=== PATIENT | male | born 1995 | race Two or more races ===

== ENCOUNTER 2018-04-10 09:42 | Emergency (ER) | payer MEDICAID, OTHER ==
[~2018-04-10] VITALS: Ht 183.5 cm; Wt 109.1 kg
[2018-04-10 10:01] VITALS: BP 129/94
[2018-04-10] MEDS ORDERED: NEOM10DR45 OT (13:12)
[2018-04-10] MEDS ORDERED: SULF5DRO RIGHTEYE (13:12)
[2018-04-10] MEDS ORDERED: mag hydrox/Alum hydrox/simeth 30ml oral suspension PO ONE (13:20)
[2018-04-10] MEDS ORDERED: LIDOcaine Viscous 15ml cup PO ONE (13:20)
== END 2018-04-10 13:45 | disposition home or self-care (01) ==
LOC: ER 09:43
DX: H10.9 Unspecified conjunctivitis (principal); H60.91 Unspecified otitis externa, right ear; J02.9 Acute pharyngitis, unspecified; Z88.8 Allergy status to other drugs, medicaments and biological substances; Z79.899 Other long term (current) drug therapy
CPT/HCPCS: 99283

== ENCOUNTER 2021-12-07 10:39 | Emergency (ER) | payer MEDICAID ==
[~2021-12-07] VITALS: Ht 182.9 cm; Wt 108.0 kg
[~2021-12-07 10:39] MED LIST: SULF5DRO RIGHTEYE
[2021-12-07 10:52] VITALS: BP 128/71
[2021-12-07] MEDS ORDERED: PROP10TA10 PO (11:30)
[2021-12-07] MEDS ORDERED: BUPR100T13 PO (11:30)
== END 2021-12-07 11:48 | disposition home or self-care (01) ==
LOC: ER 10:40
DX: F32.A Depression, unspecified (principal); F22 Delusional disorders; Z72.89 Other problems related to lifestyle; Z88.8 Allergy status to other drugs, medicaments and biological substances; Z79.899 Other long term (current) drug therapy
CPT/HCPCS: 99283

== ENCOUNTER 2022-03-17 15:19 | Emergency (ER) | payer MEDICAID ==
[~2022-03-17] VITALS: Ht 182.9 cm; Wt 106.8 kg
[~2022-03-17 15:19] MED LIST changes: +BUPR100T13 PO
[2022-03-17 15:28] VITALS: BP 165/81
== END 2022-03-17 16:36 | disposition home or self-care (01) ==
LOC: ER 15:20
DX: R23.8 Other skin changes (principal); F32.A Depression, unspecified; Z72.89 Other problems related to lifestyle; Z88.8 Allergy status to other drugs, medicaments and biological substances; Z79.899 Other long term (current) drug therapy
CPT/HCPCS: 99281

== ENCOUNTER 2022-07-04 03:00 | Emergency (ER) | payer MEDICAID | END 2022-07-04 03:56 | disposition left against medical advice (07) | LOC: ER 03:01 → MERGE 03:01 → ER 03:56 | DX: Z00.8 Encounter for other general examination (principal); Z53.21 Procedure and treatment not carried out due to patient leaving prior to being seen by health care provider ==

== ENCOUNTER 2023-10-19 15:44 | Emergency (ER) | payer MEDICAID ==
[~2023-10-19] VITALS: Ht 182.9 cm; Wt 108.6 kg
[2023-10-19] MEDS ORDERED: AMOX-580 PO (16:19)
[2023-10-19 16:26] VITALS: BP 134/74; PULSE 78; RESP 18; TEMP 98.2; O2SAT 97
== END 2023-10-19 17:42 | disposition home or self-care (01) ==
LOC: ER 15:45
DX: J32.9 Chronic sinusitis, unspecified (principal); F12.90 Cannabis use, unspecified, uncomplicated; Z72.89 Other problems related to lifestyle; Z88.8 Allergy status to other drugs, medicaments and biological substances; Z79.899 Other long term (current) drug therapy
CPT/HCPCS: 99283

== ENCOUNTER 2023-11-24 19:57 | Emergency (ER) | payer MEDICAID ==
[~2023-11-24] VITALS: Ht 182.9 cm; Wt 106.8 kg
[2023-11-24 20:08] VITALS: BP 135/69; PULSE 71; RESP 16; TEMP 98.9; O2SAT 96
== END 2023-11-25 05:06 | disposition left against medical advice (07) ==
LOC: ER 19:58
DX: R20.2 Paresthesia of skin (principal); Z53.21 Procedure and treatment not carried out due to patient leaving prior to being seen by health care provider
CPT/HCPCS: 99281

== ENCOUNTER 2023-12-23 02:27 | Emergency (ER) | payer MEDICAID ==
[~2023-12-23] VITALS: Ht 182.9 cm; Wt 106.8 kg
[~2023-12-23 02:27] MED LIST changes: +AMOX-117 PO; +FLUT16SP2 BOTHNARES; +PSEU120T56 PO
[2023-12-23] MEDS ORDERED: CLIN-214 PO (05:41)
[2023-12-23] MEDS: predniSONE 20 mg tablet PO ONE (05:53)
[2023-12-23 06:02] VITALS: BP 122/71; PULSE 84; RESP 16; TEMP 98.7; O2SAT 100
== END 2023-12-23 06:03 | disposition home or self-care (01) ==
LOC: ER 02:27
DX: T78.49XA Other allergy, initial encounter (principal); T36.95XA Adverse effect of unspecified systemic antibiotic, initial encounter; F31.9 Bipolar disorder, unspecified; F12.90 Cannabis use, unspecified, uncomplicated; Z88.8 Allergy status to other drugs, medicaments and biological substances; Z88.1 Allergy status to other antibiotic agents; Z79.2 Long term (current) use of antibiotics; Z79.899 Other long term (current) drug therapy; X58.XXXA Exposure to other specified factors, initial encounter; Y92.89 Other specified places as the place of occurrence of the external cause
CPT/HCPCS: 99283; J7512

== ENCOUNTER 2024-03-07 12:40 | Emergency (ER) | payer MEDICAID ==
[~2024-03-07] VITALS: Ht 182.9 cm; Wt 103.8 kg
[~2024-03-07 12:40] MED LIST changes: -AMOX-117 PO; +CLIN-214 PO
[2024-03-07 13:27] VITALS: BP 139/71; PULSE 64; RESP 16; TEMP 97; O2SAT 97
[2024-03-07] MEDS ORDERED: HYDR-3686 PO (14:59)
[2024-03-07] MEDS: hydrOXYzine 25 MG tablet PO ONE (15:18)
== END 2024-03-07 15:35 | disposition home or self-care (01) ==
LOC: ER 12:40
DX: F32.A Depression, unspecified (principal); F41.9 Anxiety disorder, unspecified; Z88.8 Allergy status to other drugs, medicaments and biological substances
CPT/HCPCS: 99283; Q0177

== ENCOUNTER 2024-03-22 12:10 | Emergency (ER) | payer MEDICAID ==
[~2024-03-22] VITALS: Ht 182.9 cm; Wt 106.8 kg
[~2024-03-22 12:10] MED LIST changes: +HYDR-3686 PO
[2024-03-22 12:45] VITALS: TEMP 100
[2024-03-22] MEDS: ibuprofen tablet 400 MG TABLET PO ONE (13:49)
[2024-03-22] MEDS ORDERED: NIRM1TAB9 PO (15:12)
[2024-03-22 16:19] VITALS: BP 115/71; PULSE 86; RESP 16; O2SAT 98
== END 2024-03-22 16:21 | disposition home or self-care (01) ==
LOC: ER 12:10
DX: U07.1 COVID-19 (principal); F12.90 Cannabis use, unspecified, uncomplicated; Z88.8 Allergy status to other drugs, medicaments and biological substances; Z88.1 Allergy status to other antibiotic agents; Z79.899 Other long term (current) drug therapy
CPT/HCPCS: 36415; 71045; 87502; 87503; 87811; 99284

== ENCOUNTER 2024-05-16 23:14 | Emergency (ER) | payer MEDICAID ==
[~2024-05-16] VITALS: Ht 182.9 cm; Wt 104.5 kg
[~2024-05-16 23:14] MED LIST changes: -HYDR-3686 PO; +NIRM1TAB9 PO
[2024-05-16 23:27] VITALS: BP 124/79; PULSE 55; RESP 14; TEMP 98.1; O2SAT 96
== END 2024-05-17 00:28 | disposition left against medical advice (07) ==
LOC: ER 23:15
DX: F41.9 Anxiety disorder, unspecified (principal); R51.9 Headache, unspecified; Z53.21 Procedure and treatment not carried out due to patient leaving prior to being seen by health care provider

== ENCOUNTER 2025-05-18 12:14 | Emergency (ER) | payer MEDICAID ==
[~2025-05-18] VITALS: Ht 182.9 cm; Wt 114.6 kg
[2025-05-18 12:15] VITALS: TEMP 97.8
--- NOTE | 2025-05-18 13:06 | Physician Documentation ---
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 He states he feels very fatigued initially he had a fever but states he believes his fever broke. He has been taking Tylenol at home as well as another [id number] medication for flu symptoms. He reports sinus congestion and body aches and fatigue. Denies sore throat, cough, shortness of breath, nausea, vomiting, abdominal pain, rashes. Medication Reconciliation Allergies: Coded Allergies: diphenhydramine (Verified Allergy, Intermediate, THROAT SWELLS, 03/22/24) amoxicillin (Verified Allergy, Mild, RASH, 03/22/24) clavulanic acid (Verified Allergy, Mild, RASH, 03/22/24) Scheduled Bupropion Hcl (Wellbutrin), 100 MG PO TID Clindamycin HCl (Clindamycin HCl CAPSULE), 1 CAP PO TID Fluticasone Propionate (Flonase), 2 SPRAYS BOTHNARES DAILY Nirmatrelvir/Ritonavir (Paxlovid 300-100 mg Dose Pack), 1 TAB PO BID Pseudoephedrine HCl (Sudafed 12 Hour), 1 TAB PO Q12H Sulfacetamide Sodium (Bleph-10), 2 DROP RIGHTEYE Q8H Past Medical History Past Medical History: *ENT*, Bipolar, Depression Past Surgical History: no surgical history Alcohol Use: Occasionally Drug Use: marijuana Lives In: Home Review of Systems All Other Systems at this time: Reviewed and Negative Physical Exam Vital Signs: Temperature: 97.8, Source: Oral, Heart Rate: 51, Respiratory Rate: 16, BP: 172/61, Pulse Oximetry: 97, Weight: 114.600 Oxygen Flow Rate: 0 Physical Exam GENERAL APPEARANCE: ALERT, WD/WN. NAD. HEENT: NCAT, PERRL, EOMI. NECK: SUPPLE, TRACHEA MIDLINE. CARDIOVASCULAR: RRR. NO M/R/G. LUNGS: CTAB. BREATHING UNLABORED EXTREMITIES: NORMAL INSPECTION. NO EDEMA. SKIN: WARM/DRY, NORMAL COLOR NEUROLOGICAL: ALERT AND ORIENTED X4, NORMAL GAIT. PSYCHIATRIC: AFFECT CONGRUENT WITH MOOD. Progress Results/Orders Results/Orders Vital Signs 05/18/25 12:15 Temp 97.8 Pulse 51 Resp 16 B/P (MAP) 172/61 Pulse Ox 97 O2 Flow Rate 0 Medical Decision Making Additional Comment SINUSITIS, BRONCHITIS, PNEUMONIA, STREP THROAT, EAR INFECTION, COVID, INFLUENZA, ALLERGIC RHINITIS Departure Time of Disposition: 13:03 Disposition: 01 HOME / SELF CARE / HOMELESS Impression: Primary Impression: Viral infection Condition: Stable Discharge Instructions: Viral Illness Additional Instructions: REST, FLUIDS, TYLENOL IF NEEDED FOR BODY ACHES/FEVER Departure Forms: Excuse form Work or School Excused From: Work Excuse beginning now through the following date: May 19, 2025 May Return but still avoid physical Activity from now until: May 20, 2025 Referrals: NO PRIMARY CARE PROVIDER (PCP) Education Educated: Patient Educated regarding: diagnosis, treatment, need for follow up Signature Scribe Signature: X Attestation: ISACC MARTINEZ May 18, 2025 13:06
[2025-05-18 13:07] VITALS: BP 109/78; PULSE 57; RESP 16; O2SAT 97
== END 2025-05-18 13:13 | disposition home or self-care (01) ==
LOC: ER 12:15
DX: B34.9 Viral infection, unspecified (principal); F31.9 Bipolar disorder, unspecified; F12.90 Cannabis use, unspecified, uncomplicated; Z88.8 Allergy status to other drugs, medicaments and biological substances; Z88.1 Allergy status to other antibiotic agents; Z79.899 Other long term (current) drug therapy; Z72.89 Other problems related to lifestyle
CPT/HCPCS: 99282